=== PATIENT | female | born 1970 | race Asian ===

== ENCOUNTER 2016-10-09 19:46 | Emergency (ER) | payer MEDICAID ==
[~2016-10-09] VITALS: Ht 157.5 cm; Wt 65.0 kg
[~2016-10-09 19:46] MED LIST: ALBU0.63 NEB; ALLO100T30 PO; BENZ2AMP4 PO; IBUP400T PO; OLAN2.5T3 PO; OLAN20TA3 PO; RANI150C PO; VALP250C59 PO
[2016-10-09] MEDS ORDERED: ONDANSETRON 4 MG TABLET PO ONE (20:30)
[2016-10-09] MEDS ORDERED: ONDANSETRON ODT 4 MG ONE (20:40)
[2016-10-09 20:50] LABS: BLOOD UREA NITROGEN 14 mg/dL (7-18)
[2016-10-09 22:18] VITALS: BP 127/61
== END 2016-10-09 22:23 | disposition home or self-care (01) ==
LOC: ED 21:20
DX: R11.0 Nausea (principal)
CPT/HCPCS: 36415; 80048; 82040; 85025; 93005; 99285; Q0162

== ENCOUNTER 2017-01-19 17:59 | Emergency (ER) | payer MEDICAID ==
[~2017-01-19] VITALS: Ht 152.4 cm; Wt 76.0 kg
[~2017-01-19 17:59] MED LIST changes: +IBUP-1221 PO; -IBUP400T PO
[2017-01-19 18:07] VITALS: BP 156/92
[2017-01-19] MEDS ORDERED: DIAZEPAM 5 MG TABLET PO ONE (18:30)
[2017-01-19] MEDS ORDERED: HYDROcodone/APAP 5/325 TABLET PO ONE (18:30)
[2017-01-19] MEDS ORDERED: DIAZEPAM 5 MG TABLET ONE (18:35)
[2017-01-19] MEDS ORDERED: HYDROcodone/APAP 5/325 TABLET ONE (18:35)
[2017-01-19] MEDS ORDERED: KETOROLAC 30 MG/1 ML ONE (18:35)
[2017-01-19] MEDS ORDERED: KETOROLAC 30 MG/1 ML IM ONE (19:00)
== END 2017-01-19 20:03 | disposition home or self-care (01) ==
LOC: ED 19:57
DX: G89.29 Other chronic pain (principal); M54.5 Low back pain; M10.9 Gout, unspecified; J45.909 Unspecified asthma, uncomplicated; F20.9 Schizophrenia, unspecified; Z88.6 Allergy status to analgesic agent; Z88.0 Allergy status to penicillin
CPT/HCPCS: 96372; 99283; J1885

== ENCOUNTER 2018-07-19 16:25 | Emergency (ER) | payer MEDICAID ==
[~2018-07-19] VITALS: Ht 160 cm; Wt 70.0 kg
[~2018-07-19 16:25] MED LIST changes: +ALBU6.7H INH; +DOCU-131 PO; +MONT10TA9 PO
[2018-07-19 17:04] LABS: BASOPHILS # (AUTO) 0.04 x10^3/uL (0-0.1); BASOPHILS % (AUTO) 0 % (0-1); EOSINOPHILS # (AUTO) 0.04 x10^3/uL (0-0.4); EOSINOPHILS % (AUTO) 0 % (1-7); LYMPHOCYTES % (AUTO) 46 % (22-44); MD NO; MEAN CORPUSCULAR HGB CONC 33.6 g/dL (32.4-35.8); MEAN CORPUSCULAR VOLUME 101.4 fL (80-100); MEAN PLATELET VOLUME 8.7 fL (7.4-10.4); MONOCYTES # (AUTO) 0.41 x10^3/uL (0.2-0.8); MONOCYTES % (AUTO) 5 % (2-9); NEUTROPHILS # (AUTO) 4.47 x10^3/uL (1.8-6.8); NEUTROPHILS % (AUTO) 49 % (42-75); PLATELET COUNT 197 x10^3/uL (130-400); RED BLOOD COUNT 4.36 x10^6/uL (3.82-5.3); RED CELL DISTRIBUTION WIDTH 14.2 % (9.6-15.2)
[2018-07-19 17:12] LABS: ALANINE AMINOTRANSFERASE 26 U/L (12-78); ALBUMIN 3.7 g/dL (3.4-5.0); ANION GAP 4 mmol/L (5-15); CALCIUM 9.2 mg/dL (8.5-10.1); CHLORIDE 108 mmol/L (98-107); CREATININE 0.91 mg/dL (0.55-1.02)
--- NOTE | 2018-07-19 17:13 | NUR ---
DISH ROOM WORKER: PT IN U/S, TO GO TO ROOM WHEN U/S COMPLETE
[2018-07-19 17:16] LABS: ALKALINE PHOSPHATASE 73 U/L (45-117); BILIRUBIN,TOTAL 0.3 mg/dL (0.2-1.0); TOTAL PROTEIN 7.1 g/dL (6.4-8.2)
--- NOTE | 2018-07-19 17:32 | NUR ---
PATIENT BIB [facility] FOR BILATERAL LEG SWELLING AND PAIN STARTING LAST NIGHT. AWAITING MD ORDERS, CALL LIGHT WITHIN REACH. NAD NOTED AT THIS TIME.
--- NOTE | 2018-07-19 18:01 | NUR ---
RESULTS BACK, CHART UP FOR RECHECK.
[2018-07-19 18:25] VITALS: BP 116/86
--- NOTE | 2018-07-19 18:25 | NUR ---
Patient/Caregiver given discharge instructions and they have confirmed that they understand the instructions. Patient ambulatory with steady gait.
== END 2018-07-19 18:27 | disposition home or self-care (01) ==
LOC: ED 18:21
DX: R60.0 Localized edema (principal); I10 Essential (primary) hypertension; F32.9 Major depressive disorder, single episode, unspecified; F20.9 Schizophrenia, unspecified; Z88.0 Allergy status to penicillin; Z88.6 Allergy status to analgesic agent
CPT/HCPCS: 36415; 71046; 80053; 83880; 85025; 93970; 99284

== ENCOUNTER 2018-09-04 00:04 | Emergency (ER) | payer MEDICAID ==
[~2018-09-04] VITALS: Ht 160 cm; Wt 75.0 kg
[2018-09-04 00:11] VITALS: BP 151/90
[2018-09-04] MEDS ORDERED: ACETAMINOPHEN 325 MG TABLET PO ONE (00:30)
[2018-09-04] MEDS ORDERED: KETOROLAC 30 MG/1 ML IM ONE (00:30)
[2018-09-04] MEDS ORDERED: ACETAMINOPHEN 325 MG TABLET ONE (00:39)
[2018-09-04] MEDS ORDERED: KETOROLAC 30 MG/1 ML ONE (00:39)
[2018-09-04 00:48] LABS: BASOPHILS # (AUTO) 0.01 x10^3/uL (0-0.1); BASOPHILS % (AUTO) 0 % (0-1); EOSINOPHILS # (AUTO) 0.06 x10^3/uL (0-0.4); EOSINOPHILS % (AUTO) 1 % (1-7); LYMPHOCYTES # (AUTO) 2.63 x10^3/uL (1-3.4); LYMPHOCYTES % (AUTO) 42 % (22-44); MD NO; MEAN CORPUSCULAR HEMOGLOBIN 33.6 pg (27.0-34.8); MEAN CORPUSCULAR HGB CONC 33.4 g/dL (32.4-35.8); MEAN CORPUSCULAR VOLUME 100.5 fL (80-100); MEAN PLATELET VOLUME 8.5 fL (7.4-10.4); MONOCYTES # (AUTO) 0.46 x10^3/uL (0.2-0.8); MONOCYTES % (AUTO) 7 % (2-9); NEUTROPHILS # (AUTO) 3.18 x10^3/uL (1.8-6.8); NEUTROPHILS % (AUTO) 50 % (42-75); PLATELET COUNT 164 x10^3/uL (130-400); RED BLOOD COUNT 4.23 x10^6/uL (3.82-5.3)
[2018-09-04 01:00] LABS: ALBUMIN 3.8 g/dL (3.4-5.0); ANION GAP 9 mmol/L (5-15); CALCIUM 10.4 mg/dL (8.5-10.1); CHLORIDE 109 mmol/L (98-107); CREATININE 0.85 mg/dL (0.55-1.02)
--- NOTE | 2018-09-04 01:41 | NUR ---
DC EDUCATION PROVIDED, PT DEMONSTRATES UNDERSTANDING. PT AMBULATED STEADILY TO DC WITH RN. TAXI VOUCHER PROVIDED FOR SAFE TRANSPORT HOME.
== END 2018-09-04 01:43 | disposition home or self-care (01) ==
LOC: ED 00:37
DX: M79.621 Pain in right upper arm (principal); M25.521 Pain in right elbow; M25.522 Pain in left elbow; M79.622 Pain in left upper arm; F15.10 Other stimulant abuse, uncomplicated; F41.1 Generalized anxiety disorder; Z72.9 Problem related to lifestyle, unspecified; I10 Essential (primary) hypertension; F32.9 Major depressive disorder, single episode, unspecified; F20.9 Schizophrenia, unspecified; F17.200 Nicotine dependence, unspecified, uncomplicated
CPT/HCPCS: 36415; 71045; 80048; 82040; 85025; 96372; 99284; J1885

== ENCOUNTER 2020-08-01 05:46 | Emergency (ER) | payer MEDICAID ==
[~2020-08-01] VITALS: Ht 162.6 cm; Wt 72.0 kg
[~2020-08-01 05:46] MED LIST changes: -ALBU6.7H INH; +ALBU6.7H8 INH; +MONT10TA17 PO; -MONT10TA9 PO
[2020-08-01] MEDS ORDERED: LORazepam 1MG TABLET PO ONE (06:00)
[2020-08-01] MEDS ORDERED: LORazepam 1MG TABLET ONE (06:03)
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
--- NOTE | 2020-08-01 06:07 | NUR ---
PTS INTIAL COMPLAINT WAS SI, SO PT IS IN A GOWN AND HAS ALL OF HER BELONGINGS IN BAGS AND IN THE ROOM. SINCE PT IS NOT SUICIDAL, THE BELONGINGS HAVE NOT BEEN PLACED IN THE LOCK BOX. PT PROVIDED WITH WARM BLANKETS AND OFFERED A MEAL, BUT REFUSED SHE DOESN'T LIKE SANDWICHES. PT GIVEN CRACKERS AND FREDRICK CRACKERS AND VERBALIZED CONTENTMENT.
--- NOTE | 2020-08-01 06:52 | NUR ---
REPORT AND CARE TO ROBERTO BURROWS.
[2020-08-01 10:24] VITALS: BP 122/68
--- NOTE | 2020-08-01 12:10 | NUR ---
SW at bedside.
--- NOTE | 2020-08-01 12:35 | NUR ---
This RN and MD Orta back to bedside for assessment. Pt continues to deny SI/HI. Pt states she feels safe at home, states she wants to be d/c'd there. Pt denied wanting to go to the [facility] skilled nursing.
--- NOTE | 2020-08-01 12:52 | NUR ---
Pt left $1 dollar bill at d/c. This RN attempted to give it back to pt multiple times. Pt states "no, that's for the program, like the kids with cancer, don't you have a little box you put it in." $1 left by pt after d/c.
== END 2020-08-01 12:55 | disposition home or self-care (01) ==
LOC: ED 10:29
DX: F41.1 Generalized anxiety disorder (principal); R06.4 Hyperventilation; I10 Essential (primary) hypertension; F17.200 Nicotine dependence, unspecified, uncomplicated
CPT/HCPCS: 99283

== ENCOUNTER 2020-11-08 18:17 | Inpatient (IN) | payer MEDICAID ==
[~2020-11-08] VITALS: Ht 162.6 cm; Wt 62.7 kg
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
--- NOTE | 2020-11-08 18:45 | NUR ---
TASK RN: PIV PLACED. UNABLE TO COLLECT LABS.
[2020-11-08] MEDS ORDERED: OLANZAPINE 10 MG INJ IM ONE ×2 (18:49→19:00)
[2020-11-08] MEDS ORDERED: VANCOMYCIN PER PHARMACY MC ONE (19:00)
[2020-11-08] MEDS ORDERED: SODIUM CHLORIDE FLUSH 10ML SYR IVF ONE (19:00)
[2020-11-08] MEDS ORDERED: CEFTRIAXONE 1,000 MG in DEXTROSE 5% 50 ML IVPB ONE (19:00)
[2020-11-08] MEDS ORDERED: SODIUM CHLORIDE 0.9% 1,000ML IVBOLUS ONE ×2 (19:00→20:00)
--- NOTE | 2020-11-08 19:03 | NUR ---
JULIANNE HINTON PRIOR TO START OF IV ABX.
--- NOTE | 2020-11-08 19:04 | NUR ---
PERSONAL BELONGING BAGS (3 OF 3) PLACED IN SECURE LOCKER.
[2020-11-08 19:14] LABS: BASOPHILS % (AUTO) 0 % (0-1); EOSINOPHILS % (AUTO) 0 % (1-7); LYMPHOCYTES % (AUTO) 7 % (22-44); MEAN CORPUSCULAR HEMOGLOBIN 32.1 pg (27.0-34.8); MEAN CORPUSCULAR HGB CONC 33.9 g/dL (32.4-35.8); MEAN PLATELET VOLUME 7.1 fL (7.4-10.4); MONOCYTES % (AUTO) 4 % (2-9); NEUTROPHILS % (AUTO) 89 % (42-75); PLATELET COUNT 288 x10^3/uL (130-400); RED BLOOD COUNT 2.59 x10^6/uL (3.82-5.3); RED CELL DISTRIBUTION WIDTH 15.5 % (9.6-15.2)
--- NOTE | 2020-11-08 19:23 | NUR ---
PT RESTING ON GURNEY. NADN. CESAR.
[2020-11-08 19:25] LABS: ALANINE AMINOTRANSFERASE 34 U/L (12-78); ALBUMIN 1.9 g/dL (3.4-5.0); ANION GAP 5 mmol/L (5-15); CALCIUM 8.9 mg/dL (8.5-10.1); CHLORIDE 101 mmol/L (98-107); CREATININE 1.57 mg/dL (0.55-1.02)
[2020-11-08 19:27] LABS: ALKALINE PHOSPHATASE 212 U/L (45-117); BILIRUBIN,TOTAL 0.7 mg/dL (0.2-1.0); TOTAL PROTEIN 6.6 g/dL (6.4-8.2)
[2020-11-08] MEDS ORDERED: VANCOMYCIN 1,300 MG in SODIUM CHLORIDE 0.9% 250 ML IV ONE (19:30)
[2020-11-08 20:13] LABS: MICROSCOPIC INDICATED
--- NOTE | 2020-11-08 20:26 | NUR ---
PT RESTING ON GURNEY. NADN. CESAR.
[2020-11-08] MEDS ORDERED: LORazepam 2 MG/ML, 1ML IVPush ONE (20:30)
[2020-11-08] MEDS ORDERED: LORazepam 2 MG/ML, 1ML ONE (20:33)
--- NOTE | 2020-11-08 20:35 | NUR ---
ERP DR. RCIK NOTIFIED OF PT TEMP 100.0
--- NOTE | 2020-11-08 21:13 | NUR ---
PT RESTING ON [facility]. NADN. TEMP NOTED TO BE 101.0. ERP DR. RICK NOTIFIED.
--- NOTE | 2020-11-08 21:18 | NUR ---
REPORT GIVEN TO CHRISTOPHER ZHU RN. ALL QUESTIONS ANSWERED. AWAITING PT TRANSPORT.
[2020-11-08] MEDS ORDERED: ACETAMINOPHEN 650 MG SUPP ONE (21:23)
--- NOTE | 2020-11-08 21:28 | NUR ---
PT MEDICATED PER MAY. BIGG WELL.
[2020-11-08] MEDS ORDERED: ACETAMINOPHEN 650 MG SUPP PR PRN (21:30)
[2020-11-08 22:42] VITALS: BP 157/91
[2020-11-09 00:54] VITALS: BP 115/67
[2020-11-09] MEDS ORDERED: ONDANSETRON 2MG/ML, 2ML IVPush PRN (02:30)
[2020-11-09] MEDS ORDERED: LACTATED RINGERS 1,000 ML IV SCH (02:30)
[2020-11-09] MEDS ORDERED: ACETAMINOPHEN 325 MG TABLET PO PRN (02:30)
[2020-11-09] MEDS ORDERED: VANCOMYCIN PER PHARMACY MC PRN (02:30)
[2020-11-09] MEDS ORDERED: PHARMACOKINETIC MONITORING MC PRN (03:00)
[2020-11-09] MEDS: HEPARIN 5,000 UNITS/ML, 1ML SQ SCH ×3 (03:02→20:00)
[2020-11-09] MEDS ORDERED: VANCOMYCIN 1,400 MG in SODIUM CHLORIDE 0.9% 250 ML IV ONE (03:30)
[2020-11-09] MEDS ORDERED: ACETAMINOPHEN 650 MG SUPP PR PRN (05:30)
[2020-11-09 05:33] LABS: BASOPHILS % (AUTO) 0 % (0-1); EOSINOPHILS % (AUTO) 1 % (1-7); LYMPHOCYTES % (AUTO) 13 % (22-44); MEAN CORPUSCULAR HGB CONC 33.1 g/dL (32.4-35.8); MEAN PLATELET VOLUME 7.5 fL (7.4-10.4); MONOCYTES % (AUTO) 7 % (2-9); NEUTROPHILS % (AUTO) 79 % (42-75); PLATELET COUNT 280 x10^3/uL (130-400); RED BLOOD COUNT 2.34 x10^6/uL (3.82-5.3); RED CELL DISTRIBUTION WIDTH 16.1 % (9.6-15.2)
[2020-11-09] MEDS ORDERED: VALPROATE SODIUM 1,000 MG in SODIUM CHLORIDE 0.9% 100 ML IV ONE (06:30)
[2020-11-09 07:18] VITALS: BP 113/73
[2020-11-09 08:19] LABS: % IRON SATURATION 10 % (20-55); IRON LEVEL 21 mcg/dL (50-170); TOTAL IRON BINDING CAPACITY 214 mcg/dL (250-450)
[2020-11-09] MEDS ORDERED: VALPROIC ACID 250 MG CAPSULE PO SCH (09:00)
[2020-11-09] MEDS: OLANZAPINE 2.5 MG TABLET PO SCH ×3 (09:00→20:00)
[2020-11-09] MEDS: CLINDAMYCIN PMX 600MG/50ML 50 ML IV SCH ×3 (09:43→22:43)
[2020-11-09] MEDS: NEO/POLY/HC OPHTH SUSP 7.5ML EACHEYE SCH ×3 (12:30→20:00)
[2020-11-09 13:12] VITALS: BP 117/78
[2020-11-09] MEDS: CEFTRIAXONE 2 GM in DEXTROSE 5% 50 ML IVPB SCH (13:32)
[2020-11-09 19:34] VITALS: BP 132/74
[2020-11-09] MEDS: ALLOPURINOL 100 MG TABLET PO SCH (20:00)
[2020-11-10 00:50] VITALS: BP 142/80
[2020-11-10] MEDS: HEPARIN 5,000 UNITS/ML, 1ML SQ SCH (03:49)
[2020-11-10] MEDS: CLINDAMYCIN PMX 600MG/50ML 50 ML IV SCH ×5 (03:49→23:21)
[2020-11-10 05:09] LABS: BASOPHILS % (AUTO) 1 % (0-1); EOSINOPHILS % (AUTO) 1 % (1-7); LYMPHOCYTES % (AUTO) 18 % (22-44); MEAN CORPUSCULAR HEMOGLOBIN 31.6 pg (27.0-34.8); MEAN PLATELET VOLUME 7.2 fL (7.4-10.4); MONOCYTES % (AUTO) 7 % (2-9); NEUTROPHILS % (AUTO) 73 % (42-75); PLATELET COUNT 243 x10^3/uL (130-400); RED BLOOD COUNT 2.07 x10^6/uL (3.82-5.3); RED CELL DISTRIBUTION WIDTH 16.3 % (9.6-15.2)
[2020-11-10] MEDS: LACTATED RINGERS 1,000 ML IV SCH (05:11)
[2020-11-10] MEDS: NEO/POLY/HC OPHTH SUSP 7.5ML EACHEYE SCH ×4 (05:14→22:26)
[2020-11-10 05:23] LABS: ALBUMIN 1.5 g/dL (3.4-5.0); ANION GAP 4 mmol/L (5-15); CALCIUM 8.3 mg/dL (8.5-10.1); CHLORIDE 111 mmol/L (98-107)
[2020-11-10 05:29] LABS: ALANINE AMINOTRANSFERASE 25 U/L (12-78); ALKALINE PHOSPHATASE 181 U/L (45-117); BILIRUBIN,TOTAL 0.4 mg/dL (0.2-1.0); CREATININE 0.95 mg/dL (0.55-1.02); TOTAL PROTEIN 5.5 g/dL (6.4-8.2); VANCOMYCIN,RANDOM 22.1 mcg/mL
[2020-11-10] MEDS: OLANZAPINE 2.5 MG TABLET PO SCH ×2 (09:00→21:07)
[2020-11-10] MEDS: VALPROATE SODIUM 1,000 MG in SODIUM CHLORIDE 0.9% 100 ML IV SCH (09:16)
[2020-11-10] MEDS ORDERED: ZIPRASIDONE 20 MG INJ IM ONE (12:30)
[2020-11-10] MEDS: CEFTRIAXONE 2 GM in DEXTROSE 5% 50 ML IVPB SCH (13:05)
[2020-11-10] MEDS ORDERED: ZIPRASIDONE 20 MG INJ IM PRN (16:30)
[2020-11-10] MEDS: ALLOPURINOL 100 MG TABLET PO SCH (21:07)
[2020-11-10] MEDS: VANCOMYCIN 1,300 MG in SODIUM CHLORIDE 0.9% 250 ML IV SCH (21:12)
[2020-11-10 21:33] VITALS: BP 147/88
[2020-11-11 00:44] VITALS: BP 148/80
[2020-11-11] MEDS: CLINDAMYCIN PMX 600MG/50ML 50 ML IV SCH ×4 (05:10→23:45)
[2020-11-11] MEDS: NEO/POLY/HC OPHTH SUSP 7.5ML EACHEYE SCH ×4 (06:16→21:00)
[2020-11-11] MEDS: LACTATED RINGERS 1,000 ML IV SCH ×3 (06:17→23:40)
[2020-11-11 07:23] VITALS: BP 160/85
[2020-11-11] MEDS: OLANZAPINE 2.5 MG TABLET PO SCH ×2 (09:05→21:00)
[2020-11-11] MEDS: VALPROATE SODIUM 1,000 MG in SODIUM CHLORIDE 0.9% 100 ML IV SCH (09:05)
[2020-11-11 13:14] VITALS: BP 160/91
[2020-11-11] MEDS: CEFTRIAXONE 2 GM in DEXTROSE 5% 50 ML IVPB SCH (13:40)
[2020-11-11] MEDS: VANCOMYCIN 1,300 MG in SODIUM CHLORIDE 0.9% 250 ML IV SCH (14:51)
[2020-11-11] MEDS: ZIPRASIDONE 20 MG INJ IM SCH ×2 (15:22→21:00)
[2020-11-11] MEDS: LORazepam 2 MG/ML, 1ML IM PRN (15:32)
[2020-11-11 18:33] VITALS: BP 120/71
[2020-11-11] MEDS: ALLOPURINOL 100 MG TABLET PO SCH (21:00)
[2020-11-11 22:01] VITALS: BP 131/78
[2020-11-12] VITALS (9 sets, daily range): BP systolic 135–175; BP diastolic 70–98
[2020-11-12] MEDS: ZIPRASIDONE 20 MG INJ IM SCH ×2 (03:00→08:50)
[2020-11-12] MEDS: LORazepam 2 MG/ML, 1ML IM PRN (05:57)
[2020-11-12] MEDS: NEO/POLY/HC OPHTH SUSP 7.5ML EACHEYE SCH ×4 (06:00→21:00)
[2020-11-12] MEDS: CLINDAMYCIN PMX 600MG/50ML 50 ML IV SCH ×2 (06:19→12:54)
[2020-11-12] MEDS: VALPROATE SODIUM 1,000 MG in SODIUM CHLORIDE 0.9% 100 ML IV SCH (08:50)
[2020-11-12] MEDS: LACTATED RINGERS 1,000 ML IV SCH (08:50)
[2020-11-12] MEDS: OLANZAPINE 2.5 MG TABLET PO SCH ×2 (10:01→21:25)
[2020-11-12] MEDS: VANCOMYCIN 1,300 MG in SODIUM CHLORIDE 0.9% 250 ML IV SCH (10:13)
[2020-11-12] MEDS: CEFTRIAXONE 2 GM in DEXTROSE 5% 50 ML IVPB SCH (13:04)
[2020-11-12] MEDS ORDERED: OMNIPAQUE 350 MG/ML, 75ML BOTTLE ONE (15:22)
[2020-11-12] MEDS ORDERED: ZIPRASIDONE 20 MG INJ IM PRN (16:00)
[2020-11-12 16:48] LABS: MEAN CORPUSCULAR HEMOGLOBIN 30.8 pg (27.0-34.8); MEAN CORPUSCULAR HGB CONC 33.4 g/dL (32.4-35.8); PLATELET COUNT 349 x10^3/uL (130-400); RED BLOOD COUNT 2.92 x10^6/uL (3.82-5.3); RED CELL DISTRIBUTION WIDTH 18.7 % (9.6-15.2)
[2020-11-12] MEDS: CLINDAMYCIN 300 MG CAPSULE PO SCH ×2 (17:13→23:51)
[2020-11-12 17:44] LABS: BAND#(MANUAL) 0.06 x10^3/uL; BANDS%(MANUAL) 1 % (0-7); EOS#(MANUAL) 0.17 x10^3/uL (0.0-0.4); EOS% (MANUAL) 3 % (1-7); LYMPH#(MANUAL) 1.01 x10^3/uL (1-3.4); LYMPHS% (MANUAL) 18 % (22-44); METAMYELOCYTES# (MANUAL) 0.06 x10^3/uL (0-0); METAMYELOCYTES% (MANUAL) 1 % (0-1); MONOS#(MANUAL) 0.34 x10^3/uL (0.3-2.7); MONOS% (MANUAL) 6 % (2-9); SEG#(MANUAL) 3.98 x10^3/uL (1.8-6.8); SEGS% (MANUAL) 71 % (42-75)
[2020-11-12 17:45] LABS: <PLATELET ESTIMATE> ADEQUATE; <PLT MORPHOLOGY> NORMAL PLT MORPH; ANISOCYTOSIS 1+; MICROCYTOSIS 1+
[2020-11-12] MEDS: ALLOPURINOL 100 MG TABLET PO SCH (21:25)
[2020-11-12] MEDS: LORazepam 2 MG/ML, 1ML IVPush PRN (23:51)
[2020-11-13 00:19] VITALS: BP 163/92
[2020-11-13] MEDS: hydrALAzine 20 MG/ML, 1ML IV PRN (01:06)
[2020-11-13 02:54] LABS: BASOPHILS % (AUTO) 1 % (0-1); EOSINOPHILS % (AUTO) 3 % (1-7); LYMPHOCYTES % (AUTO) 19 % (22-44); MEAN CORPUSCULAR HEMOGLOBIN 30.8 pg (27.0-34.8); MEAN CORPUSCULAR HGB CONC 33.3 g/dL (32.4-35.8); MEAN PLATELET VOLUME 6.9 fL (7.4-10.4); MONOCYTES % (AUTO) 6 % (2-9); NEUTROPHILS % (AUTO) 71 % (42-75); PLATELET COUNT 340 x10^3/uL (130-400); RED CELL DISTRIBUTION WIDTH 19.2 % (9.6-15.2)
[2020-11-13 03:01] LABS: CREATININE 0.99 mg/dL (0.55-1.02)
[2020-11-13 03:06] LABS: ALANINE AMINOTRANSFERASE 18 U/L (12-78); ALBUMIN 1.6 g/dL (3.4-5.0); ANION GAP 6 mmol/L (5-15); CALCIUM 8.3 mg/dL (8.5-10.1); CHLORIDE 113 mmol/L (98-107)
[2020-11-13 03:09] LABS: ALKALINE PHOSPHATASE 123 U/L (45-117); BILIRUBIN,TOTAL 0.3 mg/dL (0.2-1.0); TOTAL PROTEIN 5.9 g/dL (6.4-8.2)
[2020-11-13] MEDS: CLINDAMYCIN 300 MG CAPSULE PO SCH (05:45)
[2020-11-13] MEDS: NEO/POLY/HC OPHTH SUSP 7.5ML EACHEYE SCH ×4 (05:46→21:42)
[2020-11-13] MEDS: VALPROATE SODIUM 1,000 MG in SODIUM CHLORIDE 0.9% 100 ML IV SCH (07:51)
[2020-11-13] MEDS: OLANZAPINE 2.5 MG TABLET PO SCH ×2 (07:51→21:42)
[2020-11-13 09:37] VITALS: BP 173/81
[2020-11-13 12:47] VITALS: BP 163/85
[2020-11-13] MEDS: AMLODIPINE 2.5 MG TABLET PO SCH (13:44)
[2020-11-13] MEDS: CEPHALEXIN 500 MG CAPSULE PO SCH ×2 (17:37→21:41)
[2020-11-13 20:42] VITALS: BP 155/92
[2020-11-13] MEDS: ALLOPURINOL 100 MG TABLET PO SCH (21:42)
[2020-11-14] MEDS: LORazepam 2 MG/ML, 1ML IVPush PRN (02:44)
[2020-11-14 02:53] VITALS: BP 164/87
[2020-11-14 05:52] LABS: BASOPHILS % (AUTO) 1 % (0-1); EOSINOPHILS % (AUTO) 3 % (1-7); LYMPHOCYTES % (AUTO) 16 % (22-44); MEAN CORPUSCULAR HEMOGLOBIN 30.9 pg (27.0-34.8); MEAN CORPUSCULAR HGB CONC 33.8 g/dL (32.4-35.8); MEAN PLATELET VOLUME 7.2 fL (7.4-10.4); MONOCYTES % (AUTO) 7 % (2-9); NEUTROPHILS % (AUTO) 74 % (42-75); PLATELET COUNT 357 x10^3/uL (130-400); RED BLOOD COUNT 2.75 x10^6/uL (3.82-5.3); RED CELL DISTRIBUTION WIDTH 18.9 % (9.6-15.2)
[2020-11-14 06:12] LABS: ANION GAP 3 mmol/L (5-15); CALCIUM 8.8 mg/dL (8.5-10.1); CHLORIDE 112 mmol/L (98-107)
[2020-11-14] MEDS: NEO/POLY/HC OPHTH SUSP 7.5ML EACHEYE SCH ×4 (06:19→21:17)
[2020-11-14] MEDS: CEPHALEXIN 500 MG CAPSULE PO SCH ×4 (06:19→21:16)
[2020-11-14 06:21] LABS: CREATININE 1.04 mg/dL (0.55-1.02)
[2020-11-14] MEDS: VALPROATE SODIUM 1,000 MG in SODIUM CHLORIDE 0.9% 100 ML IV SCH (08:47)
[2020-11-14] MEDS: AMLODIPINE 2.5 MG TABLET PO SCH (08:47)
[2020-11-14] MEDS: OLANZAPINE 2.5 MG TABLET PO SCH ×2 (08:47→21:16)
[2020-11-14 08:53] VITALS: BP 163/91
[2020-11-14] MEDS: hydrALAzine 20 MG/ML, 1ML IV PRN (09:38)
[2020-11-14 10:28] LABS: OCCULT BLOOD NEGATIVE (NEGATIVE)
[2020-11-14 13:56] VITALS: BP 154/82
[2020-11-14 21:15] VITALS: BP 153/80
[2020-11-14] MEDS: ALLOPURINOL 100 MG TABLET PO SCH (21:16)
[2020-11-15 00:01] VITALS: BP 170/89
[2020-11-15] MEDS: NEO/POLY/HC OPHTH SUSP 7.5ML EACHEYE SCH ×4 (05:19→21:16)
[2020-11-15] MEDS: CEPHALEXIN 500 MG CAPSULE PO SCH ×2 (05:19→11:26)
[2020-11-15] MEDS ORDERED: AMLODIPINE 5 MG TABLET PO SCH (09:00)
[2020-11-15] MEDS: DIVALPROEX 125 MG CAP.SPRINK PO SCH ×2 (11:26→21:08)
[2020-11-15] MEDS: OLANZAPINE 2.5 MG TABLET PO SCH (11:26)
[2020-11-15 18:43] VITALS: BP 182/94
[2020-11-15] MEDS: ALLOPURINOL 100 MG TABLET PO SCH (21:08)
[2020-11-15] MEDS: OLANZAPINE 5 MG TABLET PO SCH (21:09)
[2020-11-15] MEDS ORDERED: ACETAMINOPHEN 325 MG TABLET PO PRN (23:00)
[2020-11-16 01:36] VITALS: BP 160/77
[2020-11-16 01:59] VITALS: BP 160/77
[2020-11-16] MEDS: NEO/POLY/HC OPHTH SUSP 7.5ML EACHEYE SCH ×5 (06:13→21:05)
[2020-11-16 08:02] LABS: BASOPHILS % (AUTO) 0 % (0-1); EOSINOPHILS % (AUTO) 1 % (1-7); LYMPHOCYTES % (AUTO) 14 % (22-44); MEAN CORPUSCULAR HEMOGLOBIN 31.4 pg (27.0-34.8); MEAN CORPUSCULAR HGB CONC 33.8 g/dL (32.4-35.8); MEAN PLATELET VOLUME 7.1 fL (7.4-10.4); MONOCYTES % (AUTO) 6 % (2-9); NEUTROPHILS % (AUTO) 79 % (42-75); PLATELET COUNT 341 x10^3/uL (130-400); RED BLOOD COUNT 2.99 x10^6/uL (3.82-5.3); RED CELL DISTRIBUTION WIDTH 18.7 % (9.6-15.2)
[2020-11-16] MEDS: OLANZAPINE 5 MG TABLET PO SCH ×2 (09:00→20:44)
[2020-11-16] MEDS: DIVALPROEX 125 MG CAP.SPRINK PO SCH ×2 (11:09→20:43)
[2020-11-16 11:14] VITALS: BP 187/91
[2020-11-16] MEDS ORDERED: AMLODIPINE 5 MG TABLET PO ONE (12:00)
[2020-11-16 14:16] VITALS: BP 186/62
[2020-11-16] MEDS: ENOXAPARIN 40 MG/0.4 ML SQ SCH (14:22)
[2020-11-16 19:40] VITALS: BP 170/90
[2020-11-16] MEDS: ALLOPURINOL 100 MG TABLET PO SCH (20:43)
[2020-11-17 00:32] VITALS: BP 182/104
[2020-11-17] MEDS: NEO/POLY/HC OPHTH SUSP 7.5ML EACHEYE SCH ×3 (05:43→16:40)
[2020-11-17] MEDS: DIVALPROEX 125 MG CAP.SPRINK PO SCH (08:43)
[2020-11-17] MEDS: OLANZAPINE 5 MG TABLET PO SCH (08:43)
[2020-11-17] MEDS ORDERED: AMLODIPINE 2.5 MG TABLET PO SCH (09:00)
[2020-11-17] MEDS ORDERED: LOSARTAN 25MG TABLET PO SCH (09:00)
[2020-11-17] MEDS ORDERED: AMLODIPINE 10 MG TAB PO SCH (09:00)
[2020-11-17 12:48] VITALS: BP 164/96
[2020-11-17] MEDS: ENOXAPARIN 40 MG/0.4 ML SQ SCH (14:00)
[2020-11-17] MEDS ORDERED: ZIPR20VI IM (17:13)
[2020-11-17] MEDS ORDERED: OLAN5TAB69 PO (17:13)
[2020-11-17] MEDS ORDERED: LOSA25TA25 PO (17:13)
[2020-11-17] MEDS ORDERED: AMLO-211 PO (17:13)
[2020-11-17] MEDS ORDERED: ALLO100T30 PO (17:13)
[2020-11-17] MEDS ORDERED: DIVA125C2 PO (17:13)
== END 2020-11-17 18:29 | DRG 720 ==
LOC: ED 20:25 → EDIP 20:33 → 3N 21:40
PROVIDERS: ADMIT Internal Medicine; ATTEND Hospitalist
PROC: 0T9B30Z Drainage of Bladder with Drainage Device, Percutaneous Approach (ICD-10-PCS; principal; 2020-11-08)
PROC: 30233N1 Transfusion of Nonautologous Red Blood Cells into Peripheral Vein, Percutaneous Approach (ICD-10-PCS; 2020-11-12)
DX: A41.9 Sepsis, unspecified organism (principal); N17.9 Acute kidney failure, unspecified; E43 Unspecified severe protein-calorie malnutrition; L97.919 Non-pressure chronic ulcer of unspecified part of right lower leg with unspecified severity; D64.9 Anemia, unspecified; E16.2 Hypoglycemia, unspecified; F17.200 Nicotine dependence, unspecified, uncomplicated; F20.9 Schizophrenia, unspecified; F41.1 Generalized anxiety disorder; I10 Essential (primary) hypertension; J45.909 Unspecified asthma, uncomplicated; F32.9 Major depressive disorder, single episode, unspecified; J98.11 Atelectasis; L03.114 Cellulitis of left upper limb; L97.929 Non-pressure chronic ulcer of unspecified part of left lower leg with unspecified severity; Z20.822 Contact with and (suspected) exposure to COVID-19; Z59.0 Homelessness; Z91.19 Patient's noncompliance with other medical treatment and regimen; Z91.83 Wandering in diseases classified elsewhere; Z88.0 Allergy status to penicillin; Z88.6 Allergy status to analgesic agent; Z68.23 Body mass index [BMI] 23.0-23.9, adult
CPT/HCPCS: 36415; 70450; 71045; 71275; 80048; 80053; 80202; 81001; 82272; 82565; 82607; 82728; 83540; 83550; 83605; 83735; 84100; 84145; 84443; 85025; 85379; 86850; 86900; 86923; 87040; 87070; 87077; 87086; 87147; 87205; 87635; 93005; 93970; 96365; 96372; 99285; G0378; J0696; J1644; J1650; J3370; J3486; Q9967; J0360; J2060; J7030; J7050; J7120; P9016

== ENCOUNTER 2020-11-17 16:05 | Inpatient (IN) | payer MEDICAID ==
[~2020-11-17] VITALS: Ht 160 cm; Wt 62.5 kg
[2020-11-17] MEDS ORDERED: DIVA125C2 PO (17:13)
[2020-11-17] MEDS ORDERED: ALLO100T30 PO (17:13)
[2020-11-17] MEDS ORDERED: LOSA25TA25 PO (17:13)
[2020-11-17] MEDS ORDERED: OLAN5TAB69 PO (17:13)
[2020-11-17] MEDS ORDERED: ZIPR20VI IM (17:13)
[2020-11-17] MEDS ORDERED: AMLO-211 PO (17:13)
[2020-11-17 20:00] VITALS: BP 168/98
[2020-11-17 20:14] LABS: BASOPHILS % (AUTO) 0 % (0-1); EOSINOPHILS % (AUTO) 1 % (1-7); LYMPHOCYTES % (AUTO) 10 % (22-44); MEAN CORPUSCULAR HEMOGLOBIN 30.9 pg (27.0-34.8); MEAN PLATELET VOLUME 6.9 fL (7.4-10.4); MONOCYTES % (AUTO) 7 % (2-9); NEUTROPHILS % (AUTO) 81 % (42-75); PLATELET COUNT 262 x10^3/uL (130-400); RED BLOOD COUNT 2.95 x10^6/uL (3.82-5.3); RED CELL DISTRIBUTION WIDTH 19.1 % (9.6-15.2)
[2020-11-17] MEDS ORDERED: POLYETHYLENE GLYCOL 17 GM PACKET PO PRN (20:30)
[2020-11-17 20:54] LABS: CHOL/HDL RATIO 3.8; FREE T4 (FREE THYROXINE) 0.93 ng/dL (0.76-1.46); LDL/HDL RATIO 2.3 (0.5-3.0)
[2020-11-17] MEDS: ALLOPURINOL 100 MG TABLET PO SCH (21:51)
[2020-11-17] MEDS: NEO/POLY/HC OPHTH SUSP 7.5ML EACHEYE SCH (21:51)
[2020-11-17] MEDS: DOCUSATE 100 MG CAPSULE PO SCH (21:51)
[2020-11-17] MEDS: DIVALPROEX 125 MG CAP.SPRINK PO SCH (21:51)
[2020-11-17] MEDS: OLANZAPINE 5 MG TABLET PO SCH (21:52)
[2020-11-18] MEDS: ACETAMINOPHEN 325 MG TABLET PO PRN (00:20)
[2020-11-18 02:18] VITALS: BP 168/98
[2020-11-18] MEDS: NEO/POLY/HC OPHTH SUSP 7.5ML EACHEYE SCH ×5 (06:05→20:17)
[2020-11-18 06:59] LABS: ALANINE AMINOTRANSFERASE 19 U/L (12-78); ALBUMIN 2.4 g/dL (3.4-5.0); ANION GAP 8 mmol/L (5-15); CALCIUM 9.2 mg/dL (8.5-10.1); CHLORIDE 106 mmol/L (98-107); CREATININE 1.11 mg/dL (0.55-1.02)
[2020-11-18 07:01] LABS: ALKALINE PHOSPHATASE 178 U/L (45-117); BILIRUBIN,TOTAL 0.4 mg/dL (0.2-1.0); TOTAL PROTEIN 7.6 g/dL (6.4-8.2)
[2020-11-18 07:33] VITALS: BP 164/101
[2020-11-18] MEDS ORDERED: LOSARTAN 25MG TABLET PO SCH (09:00)
[2020-11-18] MEDS ORDERED: AMLODIPINE 10 MG TAB PO SCH (09:00)
[2020-11-18] MEDS: DIVALPROEX 125 MG CAP.SPRINK PO SCH ×2 (10:02→20:11)
[2020-11-18] MEDS: OLANZAPINE 5 MG TABLET PO SCH ×2 (10:04→20:11)
[2020-11-18] MEDS: DOCUSATE 100 MG CAPSULE PO SCH ×2 (10:09→20:17)
[2020-11-18] MEDS: PHENAZOPYRIDINE 100 MG TABLET PO SCH ×3 (12:00→20:11)
[2020-11-18] MEDS ORDERED: FUROSEMIDE 40 MG TABLET PO ONE (13:00)
[2020-11-18] MEDS ORDERED: ENOXAPARIN 40 MG/0.4 ML SQ SCH (13:00)
[2020-11-18] MEDS: LACTOBACILLUS CHEW TABLET PO SCH ×3 (14:20→20:11)
[2020-11-18 16:18] LABS: MICROSCOPIC AUTO
[2020-11-18 18:22] VITALS: BP 169/92
[2020-11-18] MEDS: CARVEDILOL 6.25 MG TABLET PO SCH (18:23)
[2020-11-18 19:12] VITALS: BP 169/98
[2020-11-18] MEDS: ALLOPURINOL 100 MG TABLET PO SCH (20:11)
[2020-11-19] MEDS: LORazepam 1MG TABLET PO PRN ×2 (01:00→03:29)
[2020-11-19] MEDS: NEO/POLY/HC OPHTH SUSP 7.5ML EACHEYE SCH ×4 (06:00→19:51)
[2020-11-19] MEDS: CARVEDILOL 6.25 MG TABLET PO SCH ×3 (06:06→16:23)
[2020-11-19 07:06] VITALS: BP 161/72
[2020-11-19] MEDS: PHENAZOPYRIDINE 100 MG TABLET PO SCH ×3 (08:36→19:51)
[2020-11-19] MEDS: OLANZAPINE 5 MG TABLET PO SCH ×2 (08:36→19:51)
[2020-11-19] MEDS: LACTOBACILLUS CHEW TABLET PO SCH ×3 (08:36→19:51)
[2020-11-19] MEDS: DIVALPROEX 125 MG CAP.SPRINK PO SCH ×2 (08:36→19:51)
[2020-11-19] MEDS: DOCUSATE 100 MG CAPSULE PO SCH ×2 (08:36→19:51)
[2020-11-19] MEDS: LOSARTAN 50MG TABLET PO SCH (08:37)
[2020-11-19] MEDS: CEFDINIR 300 MG CAPSULE PO SCH ×2 (08:37→19:51)
[2020-11-19 19:43] VITALS: BP 133/83
[2020-11-19] MEDS: ACETAMINOPHEN 325 MG TABLET PO PRN (19:51)
[2020-11-19] MEDS: ALLOPURINOL 100 MG TABLET PO SCH (19:51)
[2020-11-20] MEDS: LORazepam 1MG TABLET PO PRN ×3 (02:40→22:00)
[2020-11-20] MEDS: NEO/POLY/HC OPHTH SUSP 7.5ML EACHEYE SCH ×4 (05:41→20:33)
[2020-11-20] MEDS: CARVEDILOL 6.25 MG TABLET PO SCH ×2 (05:41→17:22)
[2020-11-20 07:32] VITALS: BP 139/86
[2020-11-20] MEDS: CEFDINIR 300 MG CAPSULE PO SCH ×2 (08:13→20:33)
[2020-11-20] MEDS: DIVALPROEX 125 MG CAP.SPRINK PO SCH ×2 (08:13→20:33)
[2020-11-20] MEDS: DOCUSATE 100 MG CAPSULE PO SCH ×2 (08:14→20:34)
[2020-11-20] MEDS: LOSARTAN 50MG TABLET PO SCH (08:14)
[2020-11-20] MEDS: LACTOBACILLUS CHEW TABLET PO SCH ×3 (08:14→20:34)
[2020-11-20] MEDS: OLANZAPINE 5 MG TABLET PO SCH (08:14)
[2020-11-20] MEDS: HYDROCHLOROTHIAZIDE 25 MG TABLET PO SCH (08:14)
[2020-11-20] MEDS: PHENAZOPYRIDINE 100 MG TABLET PO SCH ×3 (08:14→20:33)
[2020-11-20 08:20] LABS: BASOPHILS % (AUTO) 1 % (0-1); EOSINOPHILS % (AUTO) 2 % (1-7); LYMPHOCYTES % (AUTO) 21 % (22-44); MEAN CORPUSCULAR HEMOGLOBIN 31.3 pg (27.0-34.8); MEAN CORPUSCULAR HGB CONC 33.4 g/dL (32.4-35.8); MEAN PLATELET VOLUME 6.9 fL (7.4-10.4); MONOCYTES % (AUTO) 11 % (2-9); NEUTROPHILS % (AUTO) 66 % (42-75); PLATELET COUNT 241 x10^3/uL (130-400); RED BLOOD COUNT 3.04 x10^6/uL (3.82-5.3)
[2020-11-20 08:31] LABS: ANION GAP 4 mmol/L (5-15); CHLORIDE 108 mmol/L (98-107); CREATININE 1.45 mg/dL (0.55-1.02)
[2020-11-20] MEDS ORDERED: SODIUM ZIRCONIUM CYCLOSILICATE 10 GM PO ONE (10:30)
[2020-11-20] MEDS ORDERED: DIPHENHYDRAMINE/ZINC CRM 2%, 30GM TP PRN (18:30)
[2020-11-20 19:47] VITALS: BP 135/85
[2020-11-20] MEDS: OLANZAPINE 10 MG TABLET PO SCH (20:33)
[2020-11-20] MEDS: ALBUTEROL HFA 90 MCG/SPRAY INH PRN (20:33)
[2020-11-20] MEDS: ALLOPURINOL 100 MG TABLET PO SCH (20:34)
[2020-11-21] MEDS: NEO/POLY/HC OPHTH SUSP 7.5ML EACHEYE SCH ×4 (05:51→21:00)
[2020-11-21] MEDS: CARVEDILOL 6.25 MG TABLET PO SCH ×2 (05:51→17:21)
[2020-11-21 06:31] LABS: ANION GAP 4 mmol/L (5-15); CALCIUM 8.4 mg/dL (8.5-10.1); CHLORIDE 109 mmol/L (98-107); CREATININE 1.28 mg/dL (0.55-1.02)
[2020-11-21] MEDS: LORazepam 1MG TABLET PO PRN (07:23)
[2020-11-21 08:06] VITALS: BP 175/98
[2020-11-21] MEDS: PHENAZOPYRIDINE 100 MG TABLET PO SCH ×3 (08:49→21:00)
[2020-11-21] MEDS: HYDROCHLOROTHIAZIDE 25 MG TABLET PO SCH (08:49)
[2020-11-21] MEDS: DIVALPROEX 125 MG CAP.SPRINK PO SCH ×2 (08:49→21:00)
[2020-11-21] MEDS: DOCUSATE 100 MG CAPSULE PO SCH ×2 (08:49→21:00)
[2020-11-21] MEDS: LOSARTAN 50MG TABLET PO SCH (08:49)
[2020-11-21] MEDS: LACTOBACILLUS CHEW TABLET PO SCH ×3 (08:49→21:00)
[2020-11-21] MEDS ORDERED: SODIUM ZIRCONIUM CYCLOSILICATE 5 GM PO ONE (14:00)
[2020-11-21 20:22] VITALS: BP 134/79
[2020-11-21] MEDS: ALLOPURINOL 100 MG TABLET PO SCH (21:00)
[2020-11-21] MEDS ORDERED: PRAZOSIN 1 MG CAPSULE PO SCH (21:00)
[2020-11-21] MEDS: OLANZAPINE 10 MG TABLET PO SCH (21:00)
[2020-11-21] MEDS ORDERED: OLANZAPINE 10 MG INJ IM ONE ×2 (21:19→22:00)
[2020-11-22] VITALS (7 sets, daily range): BP systolic 175–204; BP diastolic 94–127
[2020-11-22] MEDS: ALBUTEROL HFA 90 MCG/SPRAY INH PRN (00:43)
[2020-11-22] MEDS ORDERED: LOSARTAN 50MG TABLET PO ONE (01:00)
[2020-11-22] MEDS: LORazepam 1MG TABLET PO PRN (01:01)
[2020-11-22] MEDS: LOSARTAN 50MG TABLET PO SCH ×2 (01:01→08:38)
[2020-11-22] MEDS ORDERED: ALBUTEROL HFA 90 MCG/SPRAY INH SCH (04:30)
[2020-11-22] MEDS ORDERED: LORazepam 1MG TABLET PO ONE (06:00)
[2020-11-22] MEDS: NEO/POLY/HC OPHTH SUSP 7.5ML EACHEYE SCH (06:00)
[2020-11-22 06:01] LABS: BASOPHILS % (AUTO) 1 % (0-1); EOSINOPHILS % (AUTO) 1 % (1-7); LYMPHOCYTES % (AUTO) 18 % (22-44); MEAN CORPUSCULAR HEMOGLOBIN 31.8 pg (27.0-34.8); MEAN CORPUSCULAR HGB CONC 33.9 g/dL (32.4-35.8); MONOCYTES % (AUTO) 11 % (2-9); NEUTROPHILS % (AUTO) 69 % (42-75); PLATELET COUNT 161 x10^3/uL (130-400); RED BLOOD COUNT 2.52 x10^6/uL (3.82-5.3); RED CELL DISTRIBUTION WIDTH 20.5 % (9.6-15.2)
[2020-11-22 06:13] LABS: ANION GAP 6 mmol/L (5-15); CALCIUM 8.9 mg/dL (8.5-10.1); CHLORIDE 111 mmol/L (98-107)
[2020-11-22 06:21] LABS: CREATININE 1.29 mg/dL (0.55-1.02)
[2020-11-22] MEDS: CARVEDILOL 6.25 MG TABLET PO SCH (06:39)
[2020-11-22] MEDS ORDERED: ALBUTEROL HFA 90 MCG/SPRAY INH PRN (08:30)
[2020-11-22] MEDS ORDERED: FUROSEMIDE 40 MG/4 ML IV ONE (08:30)
[2020-11-22] MEDS: DIVALPROEX 125 MG CAP.SPRINK PO SCH (08:31)
[2020-11-22] MEDS: PHENAZOPYRIDINE 100 MG TABLET PO SCH (08:31)
[2020-11-22] MEDS: LACTOBACILLUS CHEW TABLET PO SCH (08:38)
[2020-11-22] MEDS: DOCUSATE 100 MG CAPSULE PO SCH (08:39)
[2020-11-22] MEDS ORDERED: FLUTICASONE/VILANTEROL 200-25MCG/INH INH SCH (09:00)
[2020-11-23] MEDS ORDERED: FUROSEMIDE 40 MG TABLET PO SCH (09:00)
== END 2020-11-22 09:45 | disposition home or self-care (01) | DRG 885 ==
LOC: 3E 19:02
PROVIDERS: ADMIT Psychiatry & Neurology Psychosomatic Medicine; ATTEND Psychiatry & Neurology Psychosomatic Medicine
DX: F31.2 Bipolar disorder, current episode manic severe with psychotic features (principal); E43 Unspecified severe protein-calorie malnutrition; N17.0 Acute kidney failure with tubular necrosis; I16.1 Hypertensive emergency; N39.0 Urinary tract infection, site not specified; F51.5 Nightmare disorder; E87.5 Hyperkalemia; I87.2 Venous insufficiency (chronic) (peripheral); J45.909 Unspecified asthma, uncomplicated; K21.9 Gastro-esophageal reflux disease without esophagitis; M10.9 Gout, unspecified; Z59.0 Homelessness; Z79.899 Other long term (current) drug therapy; Z20.822 Contact with and (suspected) exposure to COVID-19; Z68.24 Body mass index [BMI] 24.0-24.9, adult; Z88.0 Allergy status to penicillin; Z88.6 Allergy status to analgesic agent
CPT/HCPCS: 36415; 71045; 76770; 80048; 80053; 80061; 81001; 82607; 83735; 83880; 84100; 84439; 84443; 85025; 87086; 93306; 93356; J7512

== ENCOUNTER 2020-11-22 09:05 | Inpatient (IN) | payer MEDICAID ==
[~2020-11-22] VITALS: Ht 162.6 cm; Wt 64.4 kg
[~2020-11-22 09:05] MED LIST changes: +AMLO-211 PO; +DIVA125C2 PO; +LOSA25TA25 PO; +OLAN5TAB69 PO; +ZIPR20VI IM
[2020-11-22] MEDS ORDERED: FUROSEMIDE 40 MG/4 ML IV ONE (11:00)
[2020-11-22 13:16] VITALS: BP 170/97
[2020-11-22] MEDS ORDERED: ONDANSETRON 2MG/ML, 2ML IVPush PRN (13:30)
[2020-11-22] MEDS ORDERED: ALBUTEROL HFA 90 MCG/SPRAY INH PRN (13:30)
[2020-11-22] MEDS ORDERED: BISACODYL 10 MG SUPP PR PRN (13:30)
[2020-11-22] MEDS ORDERED: POLYETHYLENE GLYCOL 17 GM PACKET PO PRN (13:30)
[2020-11-22] MEDS ORDERED: ACETAMINOPHEN 325 MG TABLET PO PRN (13:30)
[2020-11-22] MEDS ORDERED: DOCUSATE 100 MG CAPSULE PO PRN (13:30)
[2020-11-22] MEDS ORDERED: hydrALAzine 20 MG/ML, 1ML IVPush PRN (13:30)
[2020-11-22] MEDS ORDERED: PROMETHAZINE 25 MG/ML, 1ML IM PRN (13:30)
[2020-11-22] MEDS ORDERED: morphine SULFATE 10 MG/ML, 1ML IVPush PRN (13:30)
[2020-11-22] MEDS ORDERED: OXYcodone IR 5MG TABLET PO PRN (13:30)
[2020-11-22] MEDS ORDERED: ONDANSETRON ODT 4 MG PO PRN (13:30)
[2020-11-22] MEDS ORDERED: ENOXAPARIN 40 MG/0.4 ML SQ SCH (13:30)
[2020-11-22] MEDS ORDERED: LABETALOL 5MG/ML, 20ML IVPush PRN (13:30)
[2020-11-22 14:47] LABS: TROPONIN I < 0.015 ng/mL (0.000-0.045)
[2020-11-22] MEDS: LOSARTAN 50MG TABLET PO SCH (16:47)
[2020-11-22] MEDS: OMEPRAZOLE 20 MG CAPSULE.DR PO SCH (16:47)
[2020-11-22 19:53] VITALS: BP 152/89
[2020-11-22] MEDS: OLANZAPINE 5 MG TABLET PO SCH (20:58)
[2020-11-22] MEDS: ALLOPURINOL 100 MG TABLET PO SCH (20:58)
[2020-11-22] MEDS: DIVALPROEX 125 MG CAP.SPRINK PO SCH (20:59)
[2020-11-22 21:13] LABS: TROPONIN I < 0.015 ng/mL (0.000-0.045)
[2020-11-22] MEDS: ZIPRASIDONE 20 MG INJ IM PRN (22:50)
[2020-11-23 00:18] VITALS: BP 110/60
[2020-11-23] MEDS: OMEPRAZOLE 20 MG CAPSULE.DR PO SCH (04:26)
[2020-11-23 07:40] VITALS: BP 177/82
[2020-11-23] MEDS: FLUTICASONE/VILANTEROL 200-25MCG/INH INH SCH (07:51)
[2020-11-23] MEDS: DIVALPROEX 125 MG CAP.SPRINK PO SCH ×2 (07:52→20:19)
[2020-11-23] MEDS: LOSARTAN 50MG TABLET PO SCH (07:53)
[2020-11-23] MEDS: OLANZAPINE 5 MG TABLET PO SCH ×2 (07:53→20:19)
[2020-11-23 08:31] LABS: BASOPHILS % (AUTO) 1 % (0-1); EOSINOPHILS % (AUTO) 0 % (1-7); LYMPHOCYTES % (AUTO) 32 % (22-44); MEAN CORPUSCULAR HEMOGLOBIN 31.7 pg (27.0-34.8); MEAN CORPUSCULAR HGB CONC 33.4 g/dL (32.4-35.8); MEAN PLATELET VOLUME 7.1 fL (7.4-10.4); MONOCYTES % (AUTO) 12 % (2-9); NEUTROPHILS % (AUTO) 55 % (42-75); PLATELET COUNT 230 x10^3/uL (130-400); RED BLOOD COUNT 2.87 x10^6/uL (3.82-5.3); RED CELL DISTRIBUTION WIDTH 20.8 % (9.6-15.2)
[2020-11-23 08:32] LABS: CHLORIDE 109 mmol/L (98-107)
[2020-11-23 08:40] LABS: ALANINE AMINOTRANSFERASE 16 U/L (12-78); ALBUMIN 2.6 g/dL (3.4-5.0); ALKALINE PHOSPHATASE 167 U/L (45-117); ANION GAP 5 mmol/L (5-15); BILIRUBIN,TOTAL 0.3 mg/dL (0.2-1.0); CALCIUM 9.2 mg/dL (8.5-10.1); CHOL/HDL RATIO 4.8; CHOLESTEROL, TOTAL 207 mg/dL (140-239); HDL CHOL % 21 % (28-40); HDL CHOLESTEROL (DIRECT) 43 mg/dL (40-60); LDL CHOLESTEROL,CALCULATED 138 mg/dL (54-169); LDL/HDL RATIO 3.2 (0.5-3.0); TOTAL PROTEIN 7.8 g/dL (6.4-8.2); TRIGLYCERIDES 129 mg/dL (50-200); VLDL CHOLESTEROL 26 mg/dL (0-25)
[2020-11-23 13:12] VITALS: BP 188/83
[2020-11-23 15:25] VITALS: BP 150/90
[2020-11-23] MEDS: ISOSORBIDE MONONITRATE ER 60 MG TABLET PO SCH (16:14)
[2020-11-23] MEDS ORDERED: ENOXAPARIN 30 MG/0.3 ML SQ SCH (16:30)
[2020-11-23 19:20] VITALS: BP 172/95
[2020-11-23] MEDS: ALLOPURINOL 100 MG TABLET PO SCH (20:19)
[2020-11-23] MEDS: ZIPRASIDONE 20 MG INJ IM PRN (20:19)
[2020-11-23 22:21] VITALS: BP 155/68
[2020-11-24 02:13] VITALS: BP 116/69
[2020-11-24] MEDS: OMEPRAZOLE 20 MG CAPSULE.DR PO SCH (03:12)
[2020-11-24 09:31] VITALS: BP 188/69
[2020-11-24] MEDS: OLANZAPINE 5 MG TABLET PO SCH (09:35)
[2020-11-24] MEDS: LOSARTAN 50MG TABLET PO SCH (09:35)
[2020-11-24] MEDS: ISOSORBIDE MONONITRATE ER 60 MG TABLET PO SCH (09:35)
[2020-11-24] MEDS: DIVALPROEX 125 MG CAP.SPRINK PO SCH (09:35)
[2020-11-24] MEDS: FLUTICASONE/VILANTEROL 200-25MCG/INH INH SCH (09:40)
[2020-11-24 10:07] LABS: ANION GAP 6 mmol/L (5-15); CALCIUM 8.9 mg/dL (8.5-10.1); CHLORIDE 108 mmol/L (98-107)
[2020-11-24 10:09] LABS: CREATININE 1.58 mg/dL (0.55-1.02)
[2020-11-24] MEDS ORDERED: HYDROCHLOROTHIAZIDE 25 MG TABLET PO SCH (10:30)
[2020-11-24] MEDS ORDERED: OMEP-110 PO (10:34)
[2020-11-24] MEDS ORDERED: HYDR25TA6 PO (10:34)
[2020-11-24] MEDS ORDERED: ALBU18HF INH (10:34)
[2020-11-24] MEDS ORDERED: POLY17PO5 PO (10:34)
[2020-11-24] MEDS ORDERED: ISOS60TA36 PO (10:34)
[2020-11-24] MEDS ORDERED: LOSA50TA2 PO (10:34)
[2020-11-24] MEDS ORDERED: OXYC5TAB98 PO (10:34)
[2020-11-24] MEDS ORDERED: BISA10SU4 PR (10:34)
[2020-11-24] MEDS ORDERED: HYDR-3343 PO (10:34)
[2020-11-24] MEDS ORDERED: FLUT1BLS INH (10:34)
[2020-11-24] MEDS ORDERED: DOCU-181 PO (10:34)
[2020-11-24 11:00] VITALS: BP 145/55
== END 2020-11-24 14:05 | DRG 194 ==
LOC: 5SO 09:05
PROVIDERS: ADMIT Internal Medicine; ATTEND Internal Medicine
DX: I13.0 Hypertensive heart and chronic kidney disease with heart failure and stage 1 through stage 4 chronic kidney disease, or unspecified chronic kidney disease (principal); J96.01 Acute respiratory failure with hypoxia; E43 Unspecified severe protein-calorie malnutrition; N17.9 Acute kidney failure, unspecified; I50.33 Acute on chronic diastolic (congestive) heart failure; F31.9 Bipolar disorder, unspecified; I16.0 Hypertensive urgency; J45.909 Unspecified asthma, uncomplicated; K21.9 Gastro-esophageal reflux disease without esophagitis; M10.9 Gout, unspecified; N18.9 Chronic kidney disease, unspecified; Z20.822 Contact with and (suspected) exposure to COVID-19; Z68.24 Body mass index [BMI] 24.0-24.9, adult; Z79.899 Other long term (current) drug therapy
CPT/HCPCS: 36415; 70450; 71045; 71275; 76770; 80048; 80053; 80061; 80202; 81001; 82272; 82565; 82607; 82728; 83036; 83540; 83550; 83605; 83735; 83880; 84100; 84145; 84439; 84443; 84484; 85025; 85379; 86850; 86900; 86923; 87040; 87070; 87077; 87086; 87147; 87205; 87635; 93005; 93306; 93356; 93970; 96365; 96372; 99285; G0378; J0696; J1644; J1650; J1940; J3370; J3486; Q9967; J0360; J2060; J7030; J7050; J7120; J7512; P9016